=== PATIENT | male | born 1970 | race Caucasian/White ===

== ENCOUNTER → 2018-06-04 | Outpatient (CLI) | payer OTHER | LOC: CIMAGING 13:43 → EDSTATUS 13:44 → CIMAGING 13:45 | PROVIDERS: ATTEND Physical Medicine & Rehabilitation | DX: S99.921A Unspecified injury of right foot, initial encounter (principal); Y99.0 Civilian activity done for income or pay | CPT/HCPCS: 73610-PO; 73630-PO ==

== ENCOUNTER → 2019-04-15 | Outpatient (CLI) | payer OTHER ==
[~2019-04-15] MED LIST: IOPAMIDOL (ISOVUE-300) 100 ML BTL ONE
== END ==
LOC: FIMAGING 14:06
PROVIDERS: ATTEND Family Medicine
DX: R10.813 Right lower quadrant abdominal tenderness (principal); K80.20 Calculus of gallbladder without cholecystitis without obstruction; K44.9 Diaphragmatic hernia without obstruction or gangrene
CPT/HCPCS: Q9967